=== PATIENT | female | born 1955 | race Caucasian/White ===

== ENCOUNTER → 2021-10-28 | Outpatient (CLI) | payer MEDICARE ==
[~2021-10-28] MED LIST: Calcium Citrat200 MG PO; ESCI10 PO; FLUO10 PO; HYDR-86 PO; LOSA50 PO; MODA200 PO; MULTI VITAMIN1 EACH PO; NAPR220 PO; NORCO 7.5/325 PO; ONDA4ODT SL
[2021-10-28 13:16] LABS: BASOPHILS ABSOLUTE AUTO 0.08 K/mm3 (0.00-0.23); BASOPHILS PERCENT AUTO 1 % (0-2); EOSINOPHILS ABSOLUTE AUTO 0.14 K/mm3 (0.00-0.68); EOSINOPHILS PERCENT AUTO 1 % (0-6); Hematocrit 36.2 % (33.0-51.0); Hemoglobin 12.1 g/dL (11.5-16.0); IMMATURE GRAN ABSOLUTE AUTO 0.03 K/mm3 (0.00-0.10); IMMATURE GRAN PERCENT AUTO 0 % (0-1); LYMPHOCYTES ABSOLUTE AUTO 2.12 K/mm3 (0.84-5.20); LYMPHOCYTES PERCENT AUTO 16 % (21-46); MONOCYTES ABSOLUTE AUTO 1.11 K/mm3 (0.16-1.47); MONOCYTES PERCENT AUTO 9 % (4-13); Mean Corpuscular HGB 26.9 pg (26.0-34.0); Mean Corpuscular HGB Conc 33.4 g/dL (31.5-36.5); Mean Corpuscular Volume 81 fL (80-100); Mean Platelet Volume 8.7 fL (9.1-12.4); NEUTROPHILS ABSOLUTE AUTO 9.61 K/mm3 (1.96-9.15); NEUTROPHILS PERCENT AUTO 73 % (41-73); Platelet Count 473 K/mm3 (150-400); RDW Coefficient Variation 13.8 % (11.7-14.2); RDW Standard Deviation 40.4 fL (35.1-46.3); Red Blood Cell Count 4.49 M/mm3 (3.80-5.20); White Blood Cell Count 13.09 K/mm3 (4.00-11.30)
[2021-10-28 13:24] LABS: Albumin, Blood 3.4 g/dL (3.4-5.0); Bilirubin, Total 0.9 mg/dL (0.1-1.0); Bun/Creatinine Ratio 13.2 (12.0-20.0); Calcium, Blood 8.8 mg/dL (8.5-10.1); Creatinine, Blood 0.76 mg/dL (0.40-1.00); Globulin, Blood 3.5 g/dL (2.2-4.0); Potassium, Blood 4.3 mmol/L (3.5-5.5); Total Protein, Blood 6.9 g/dL (6.4-8.2)
== END ==
LOC: LAB SHORT 13:09
PROVIDERS: Physician Assistant
DX: R10.9 Unspecified abdominal pain (principal); N39.0 Urinary tract infection, site not specified
CPT/HCPCS: 80053; 83690; 85025; 87086

== ENCOUNTER → 2021-11-30 | Outpatient (CLI) | payer MEDICARE ==
[2021-11-30 14:46] LABS: Microalb/Creat Ratio UR, Rand Unable to Calculate mg/g (0.000-30.000); Microalbumin, Random Urine <5.000 mg/L (0.000-20.000)
== END | disposition home or self-care (01) ==
LOC: LAB SHORT 10:00
PROVIDERS: Family Medicine
DX: R73.03 Prediabetes (principal)
CPT/HCPCS: 82043; 82570

== ENCOUNTER 2021-12-08 07:11 | Inpatient (IN) | payer MEDICARE ==
[~2021-12-08] VITALS: Ht 162.6 cm; Wt 108.9 kg
[2021-12-08 08:11] LABS: BASOPHILS ABSOLUTE AUTO 0.05 K/mm3 (0.00-0.23); BASOPHILS PERCENT AUTO 0 % (0-2); EOSINOPHILS PERCENT AUTO 0 % (0-6); Hematocrit 40.7 % (33.0-51.0); Hemoglobin 13.2 g/dL (11.5-16.0); IMMATURE GRAN ABSOLUTE AUTO 0.09 K/mm3 (0.00-0.10); IMMATURE GRAN PERCENT AUTO 0 % (0-1); LYMPHOCYTES ABSOLUTE AUTO 1.31 K/mm3 (0.84-5.20); LYMPHOCYTES PERCENT AUTO 6 % (21-46); MONOCYTES ABSOLUTE AUTO 0.69 K/mm3 (0.16-1.47); MONOCYTES PERCENT AUTO 3 % (4-13); Mean Corpuscular HGB 25.8 pg (26.0-34.0); Mean Corpuscular HGB Conc 32.4 g/dL (31.5-36.5); Mean Corpuscular Volume 80 fL (80-100); NEUTROPHILS ABSOLUTE AUTO 19.69 K/mm3 (1.96-9.15); NEUTROPHILS PERCENT AUTO 90 % (41-73); Platelet Count 495 K/mm3 (150-400); RDW Coefficient Variation 14.7 % (11.7-14.2); RDW Standard Deviation 42.4 fL (35.1-46.3); Red Blood Cell Count 5.11 M/mm3 (3.80-5.20); White Blood Cell Count 21.83 K/mm3 (4.00-11.30)
[2021-12-08 08:32] LABS: Albumin, Blood 3.6 g/dL (3.4-5.0); Albumin/Globulin Ratio 0.9 (0.8-1.8); Bun/Creatinine Ratio 23.4 (12.0-20.0); Calcium, Blood 9.6 mg/dL (8.5-10.1); Creatinine, Blood 0.6 mg/dL (0.40-1.00); Total Protein, Blood 7.6 g/dL (6.4-8.2)
[2021-12-08] MEDS ORDERED: THERA-D2000 UNIT PO (09:10)
[2021-12-08] MEDS ORDERED: Acetaminophen650 M1 PO ×2 (09:11)
[2021-12-08] MEDS ORDERED: ESCI20 PO (09:38)
[2021-12-08 15:54] LABS: SARS-Cov-2 (COVID-19) PCR, MMC NEGATIVE (NEGATIVE)
--- NOTE | 2021-12-08 17:36 | NUR ---
PT HR 102-120, PT REPORTS PAIN LESSENS AFTER PAIN MEDS BUT GRADUALLY "CREEPS UP" REPORTS PAIN IS MAINLY IN LLQ. PTS SON MERARY HOME BIOX, ON CONT BIOX AND MAINTAINING GREATER THAN 90%.
--- NOTE | 2021-12-08 18:05 | NUR ---
PT REPORTS NO PAIN RELIEF AFTER MEDICATING. HR 102-120. PT GRIMACING AND RUBBING STOMACH.NOTIFIED DR GARDUNO OF PATIENTS STATUS
[2021-12-09 04:51] LABS: BASOPHILS ABSOLUTE AUTO 0.05 K/mm3 (0.00-0.23); BASOPHILS PERCENT AUTO 0 % (0-2); EOSINOPHILS PERCENT AUTO 0 % (0-6); Hematocrit 36.6 % (33.0-51.0); Hemoglobin 11.6 g/dL (11.5-16.0); IMMATURE GRAN PERCENT AUTO 1 % (0-1); LYMPHOCYTES ABSOLUTE AUTO 1.65 K/mm3 (0.84-5.20); LYMPHOCYTES PERCENT AUTO 8 % (21-46); MONOCYTES ABSOLUTE AUTO 0.93 K/mm3 (0.16-1.47); MONOCYTES PERCENT AUTO 4 % (4-13); Mean Corpuscular HGB 25.8 pg (26.0-34.0); Mean Corpuscular HGB Conc 31.7 g/dL (31.5-36.5); Mean Corpuscular Volume 81 fL (80-100); Mean Platelet Volume 8.8 fL (9.1-12.4); NEUTROPHILS ABSOLUTE AUTO 19.05 K/mm3 (1.96-9.15); NEUTROPHILS PERCENT AUTO 87 % (41-73); Platelet Count 386 K/mm3 (150-400); RDW Coefficient Variation 15.2 % (11.7-14.2); White Blood Cell Count 21.78 K/mm3 (4.00-11.30)
--- NOTE | 2021-12-09 05:07 | NUR ---
ASSUMED CARE OF PT AT 1900 HRS. PT IS A&OX4, MOD ASSIST OOB AND IS ABLE TO MAKE NEEDS KNOWN. SURGICAL EVAL THIS SHIFT, ORDERED TORADOL FOR PAIN MANAGEMENT. PT RATING PAIN 8-9/10 THROUGHOUT THE NIGHT. BOWEL TONES ARE FAINT AND HYPOACTIVE. PT RESTS BETWEEN CARES, IS ABLE TO SLEEP 6+ HOURS THIS SHIFT. CALLS APPROPRIATELY. WILL CONTINUE TO MONITOR AND GIVE REPORT TO DAY SHIFT RN.
[2021-12-09 05:21] LABS: Albumin, Blood 2.7 g/dL (3.4-5.0); Anion Gap 6 mmol/L (6-16); Blood Urea Nitrogen 22 mg/dL (8-24); Bun/Creatinine Ratio 23.8 (12.0-20.0); CO2, Blood 27 mmol/L (21-32); Calcium, Blood 8.9 mg/dL (8.5-10.1); Chloride, Blood 105 mmol/L (98-108); Creatinine, Blood 0.93 mg/dL (0.40-1.00); Glomerular Filtration Rate 68 (60-); Glucose, Blood 137 mg/dL (70-99); Magnesium, Blood 2.2 mg/dL (1.6-2.4); Potassium, Blood 4.4 mmol/L (3.5-5.5); Sodium, Blood 138 mmol/L (136-145)
--- NOTE | 2021-12-09 15:45 | NUR ---
PATIENTS BP IS LOW AT 96/58. RECHECK SHOWS 96/56. PATIENT SLIGHTLY "CLAMMY", DENIES DIZZINESS/LIGHTHEADEDNESS. MD NOTIFIED.
--- NOTE | 2021-12-09 17:28 | NUR ---
DR GARDUNO ORDERED 1OOOML BOLUS. DR CASH AT BEDSIDE, UPDATED ON PATIENTS CONDITION. GAVE ORDERS TO PLACE AND LEAVE DORANTES IF PATIENT BLADDER SCAN SHOWS GREATER THAN 300 AND PATIENT IS UNABLE TO VOID. STATED HE WOULD ENTER ORDERS.
--- NOTE | 2021-12-09 18:58 | NUR ---
SHIFT [facility] PATIENT HAD LOW BP LATE IN THE SHIFT THIS SHIFT, FLUID BOLUS GIVEN AND IMPROVED BP, SEE CHART. PATIENT IS NPO W/ SIPS & CHIPS, IV ABX, FLUIDS RUNNING. STRAIGHT CATH THIS AM D/T URINARY RETENTION. PATIENT REPORTS MINIMAL ABDOMINAL PAIN WHILE AT REST, MEDICATED PER EMAR. CALLS APPROPRIATELY, WILL REPORT TO ONCOMING RN.
[2021-12-10 04:49] LABS: BASOPHILS ABSOLUTE AUTO 0.03 K/mm3 (0.00-0.23); BASOPHILS PERCENT AUTO 0 % (0-2); EOSINOPHILS ABSOLUTE AUTO 0.04 K/mm3 (0.00-0.68); EOSINOPHILS PERCENT AUTO 0 % (0-6); Hematocrit 34.7 % (33.0-51.0); Hemoglobin 10.7 g/dL (11.5-16.0); IMMATURE GRAN ABSOLUTE AUTO 0.05 K/mm3 (0.00-0.10); IMMATURE GRAN PERCENT AUTO 0 % (0-1); LYMPHOCYTES ABSOLUTE AUTO 1.03 K/mm3 (0.84-5.20); LYMPHOCYTES PERCENT AUTO 7 % (21-46); MONOCYTES ABSOLUTE AUTO 0.44 K/mm3 (0.16-1.47); MONOCYTES PERCENT AUTO 3 % (4-13); Mean Corpuscular HGB 25.7 pg (26.0-34.0); Mean Corpuscular HGB Conc 30.8 g/dL (31.5-36.5); Mean Corpuscular Volume 83 fL (80-100); Mean Platelet Volume 9.1 fL (9.1-12.4); NEUTROPHILS ABSOLUTE AUTO 12.83 K/mm3 (1.96-9.15); NEUTROPHILS PERCENT AUTO 89 % (41-73); Platelet Count 357 K/mm3 (150-400); RDW Coefficient Variation 15.4 % (11.7-14.2); RDW Standard Deviation 46.5 fL (35.1-46.3); Red Blood Cell Count 4.17 M/mm3 (3.80-5.20); White Blood Cell Count 14.42 K/mm3 (4.00-11.30)
--- NOTE | 2021-12-10 05:05 | NUR ---
ASSUMED CARE OF PT AT 1900. PT IS A&OX4, IS ABLE TO AMBULATE TO BR WITH MINIMAL ASSISTANCE AND IS ABLE TO MAKE NEEDS KNOWN. PT REPORTS SOME PASSING OF FLATUS THIS SHIFT. DORANTES CATHETER STARTED FOR RETENTION. PT IS NPO D/T SOME INCREASING ABD DISTENSION. PT REPORTS PAIN IMPROVING. PT RESTS BETWEEN CARES, IS ABLE TO SLEEP 6+ HOURS THIS SHIFT. WILL CONTINUE TO MONITOR THIS PT AND GIVE HANDOFF REPORT TO DAYSHIFT RN.
[2021-12-10 05:09] LABS: Albumin, Blood 2.2 g/dL (3.4-5.0); Anion Gap 5 mmol/L (6-16); Blood Urea Nitrogen 31 mg/dL (8-24); Bun/Creatinine Ratio 28.4 (12.0-20.0); CO2, Blood 27 mmol/L (21-32); Calcium, Blood 8.6 mg/dL (8.5-10.1); Chloride, Blood 108 mmol/L (98-108); Creatinine, Blood 1.09 mg/dL (0.40-1.00); Glomerular Filtration Rate 56 (60-); Glucose, Blood 115 mg/dL (70-99); Magnesium, Blood 2.1 mg/dL (1.6-2.4); Phosphorus, Blood 3.5 mg/dL (2.5-4.9); Potassium, Blood 4.1 mmol/L (3.5-5.5); Sodium, Blood 140 mmol/L (136-145)
--- NOTE | 2021-12-10 18:01 | NUR ---
SHIFT SUMMARY NO ACUTE EVENTS THIS SHIFT. PATIENT ADVANCED TO CLEAR LIQUIDS AND TOLERATING WELL, DENIES N/V. REPORTS MODERATE ABDOMINAL PAIN, BUT LESS FREQUENTLY, MANAGED PER EMAR. PATIENT REPORTED FLATUS THIS AM, NONE SINCE, NO BM. ENCOURAGED MOBILITY, AMBULATION, UP TO CHAIR, AND DEEP BREATHING TODAY. PATIENT AGREED TO UP TO CHAIR X1 THIS SHIFT. O2 SATS MAINTAINING >92% ON RA WHILE AWAKE THROUGHOUT SHIFT. DORANTES REMAINS IN PLACE. IV FLUIDS & ABX CONTINUE. CALLS APPROPRIATELY, WILL REPORT TO ONCOMING RN.
[2021-12-11 05:21] LABS: BASOPHILS ABSOLUTE AUTO 0.05 K/mm3 (0.00-0.23); BASOPHILS PERCENT AUTO 0 % (0-2); EOSINOPHILS PERCENT AUTO 1 % (0-6); Hematocrit 32.9 % (33.0-51.0); Hemoglobin 10.1 g/dL (11.5-16.0); IMMATURE GRAN ABSOLUTE AUTO 0.07 K/mm3 (0.00-0.10); IMMATURE GRAN PERCENT AUTO 0 % (0-1); LYMPHOCYTES ABSOLUTE AUTO 1.34 K/mm3 (0.84-5.20); LYMPHOCYTES PERCENT AUTO 9 % (21-46); MONOCYTES ABSOLUTE AUTO 0.53 K/mm3 (0.16-1.47); MONOCYTES PERCENT AUTO 3 % (4-13); Mean Corpuscular HGB 25.5 pg (26.0-34.0); Mean Corpuscular HGB Conc 30.7 g/dL (31.5-36.5); Mean Corpuscular Volume 83 fL (80-100); Mean Platelet Volume 9.1 fL (9.1-12.4); NEUTROPHILS ABSOLUTE AUTO 13.44 K/mm3 (1.96-9.15); NEUTROPHILS PERCENT AUTO 86 % (41-73); Platelet Count 357 K/mm3 (150-400); RDW Coefficient Variation 15.2 % (11.7-14.2); RDW Standard Deviation 46.9 fL (35.1-46.3); Red Blood Cell Count 3.96 M/mm3 (3.80-5.20); White Blood Cell Count 15.63 K/mm3 (4.00-11.30)
--- NOTE | 2021-12-11 05:37 | NUR ---
ASSUMED CARE OF PT AT 1900. NO ACUTE CHANGES THIS SHIFT. PT IS A&OX4, MOD ASSIST OOB, HAS FOLY AND IS ABLE TO MAKE NEEDS KNOWN. PT REPORTS NORE PAIN THIS SHIFT, MEDICATED WITH PRN FENTANYL AND ALISSA. TOLERATING CLEAR LIQUIDS. PT REPORTS PASSING OF FLATUS, BOWEL TONES ARE AUDIABLE AND ACTIVE. PT SLEEPS 6+ HOURS THIS SHIFT. NO SOB REPORTED, SAT >90& ON RA. WILL CONTINUE TO MONITOR AND GIVE HANDOFF REPORT TO DAY SHIFT RN.
[2021-12-11 05:57] LABS: Anion Gap 3 mmol/L (6-16); Blood Urea Nitrogen 31 mg/dL (8-24); CO2, Blood 26 mmol/L (21-32); Calcium, Blood 9.3 mg/dL (8.5-10.1); Chloride, Blood 109 mmol/L (98-108); Creatinine, Blood 0.86 mg/dL (0.40-1.00); Glomerular Filtration Rate 75 (60-); Glucose, Blood 119 mg/dL (70-99); Magnesium, Blood 2.6 mg/dL (1.6-2.4); Phosphorus, Blood 2.6 mg/dL (2.5-4.9); Potassium, Blood 3.8 mmol/L (3.5-5.5); Sodium, Blood 138 mmol/L (136-145)
--- NOTE | 2021-12-11 19:16 | NUR ---
SHIFT SUMMARY PT A&OX4, VSS/RA, AMB INDEPENDENTLY IN HALLWAYS/UP TO CHAIR, CAROLYNE CLD, PAIN MANAGED WITH TYLENOL AND TORADOL, VOIDING WELL, BMS++. REPORT PROVIDED TO NARGIS PAGE.
--- NOTE | 2021-12-12 04:13 | NUR ---
SHIFT SUMMARY NO ACUTE CHANGES THIS SHIFT. IVF + ABX PER ORDERS. TYLENOL/TORADOL/ROXICODONE FOR PAIN MANAGEMENT. INDEP IN ROOM. PT CONT TO REPORT FLATUS AND CAROLYNE CLEAR LIQ DIET. USES CALL LIGHT APPROPRIATELY.
[2021-12-12 04:43] LABS: BASOPHILS ABSOLUTE AUTO 0.03 K/mm3 (0.00-0.23); BASOPHILS PERCENT AUTO 0 % (0-2); EOSINOPHILS ABSOLUTE AUTO 0.22 K/mm3 (0.00-0.68); EOSINOPHILS PERCENT AUTO 2 % (0-6); Hematocrit 31.1 % (33.0-51.0); Hemoglobin 9.8 g/dL (11.5-16.0); IMMATURE GRAN ABSOLUTE AUTO 0.06 K/mm3 (0.00-0.10); IMMATURE GRAN PERCENT AUTO 0 % (0-1); LYMPHOCYTES ABSOLUTE AUTO 1.54 K/mm3 (0.84-5.20); LYMPHOCYTES PERCENT AUTO 11 % (21-46); MONOCYTES ABSOLUTE AUTO 0.56 K/mm3 (0.16-1.47); MONOCYTES PERCENT AUTO 4 % (4-13); Mean Corpuscular HGB 25.5 pg (26.0-34.0); Mean Corpuscular HGB Conc 31.5 g/dL (31.5-36.5); Mean Corpuscular Volume 81 fL (80-100); Mean Platelet Volume 9.2 fL (9.1-12.4); NEUTROPHILS ABSOLUTE AUTO 11.16 K/mm3 (1.96-9.15); NEUTROPHILS PERCENT AUTO 82 % (41-73); Platelet Count 354 K/mm3 (150-400); RDW Coefficient Variation 15.1 % (11.7-14.2); RDW Standard Deviation 44.5 fL (35.1-46.3); Red Blood Cell Count 3.84 M/mm3 (3.80-5.20); White Blood Cell Count 13.57 K/mm3 (4.00-11.30)
[2021-12-12 05:10] LABS: Albumin, Blood 1.8 g/dL (3.4-5.0); Anion Gap 8 mmol/L (6-16); Blood Urea Nitrogen 23 mg/dL (8-24); Bun/Creatinine Ratio 30.4 (12.0-20.0); CO2, Blood 24 mmol/L (21-32); Calcium, Blood 8.5 mg/dL (8.5-10.1); Chloride, Blood 109 mmol/L (98-108); Creatinine, Blood 0.76 mg/dL (0.40-1.00); Glomerular Filtration Rate 87 (60-); Glucose, Blood 117 mg/dL (70-99); Magnesium, Blood 2.4 mg/dL (1.6-2.4); Phosphorus, Blood 3.5 mg/dL (2.5-4.9); Potassium, Blood 3.5 mmol/L (3.5-5.5); Sodium, Blood 141 mmol/L (136-145)
--- NOTE | 2021-12-12 16:18 | NUR ---
SHIFT SUMMARY PT A&OX4, VSS/RA. ADV TO REG LOW FAT DIET, W/N HALF-HOUR PT HAD LARGE LIQUID JELLY BM WITH ABD CRAMPING. MEDICATED WITH 25 FENT X2, WHICH HELPED PT RELAX AND SLEEP. WILL REPORT TO ONCOMING JANAE PAGE.
--- NOTE | 2021-12-13 04:09 | NUR ---
SHIFT SUMMARY PT HAS SLOWLY STARTED TO FEEL BETTER T/O NIGHT. ZOFRAN GIVEN AT START OF SHIFT FOR NAUSEA. NO EMESIS. TYLENOL/TORADOL/FENTANYL FOR ABD PAIN MANAGEMENT. PT PASSING FLATUS AND HAD A MORE SOLID BM VS LIQUID BM. IVF + ABX PER ORDERS. INDEP IN ROOM. USES CALL LIGHT APPROPRIATELY.
[2021-12-13 13:01] LABS: Influenza A, PCR NEGATIVE (NEGATIVE); Influenza B, PCR NEGATIVE (NEGATIVE); Resp Syncytial Virus, PCR NEGATIVE (NEGATIVE); SARS-Cov-2 (COVID-19) PCR, MMC NEGATIVE (NEGATIVE)
--- NOTE | 2021-12-13 13:33 | NUR ---
PT TO PROCEDURE AT 1315
--- NOTE | 2021-12-13 14:39 | NUR ---
12/13/21 1439 Rosemary Condon PT. IS ON SCHEDULED ABX
--- NOTE | 2021-12-13 17:46 | NUR ---
SHIFT SUMMARY PT POD #1 FOR WASH OUT AND DRAIN PLACEMENT. PT WAS TO HAVE A HEMICOLECTOMY BUT HEMICOLECTOMY WAS NOT POSSIBLE DUE TO INFLAMMATION. 2 EUSEBIA DRAINS PLACED, DRAINING SS FLUID. PT'S PAIN TREATED PER EMR. CLEAR LIQUID DIET IN THE AM. VSS.
[2021-12-14 05:03] LABS: BASOPHILS ABSOLUTE AUTO 0.03 K/mm3 (0.00-0.23); BASOPHILS PERCENT AUTO 0 % (0-2); EOSINOPHILS ABSOLUTE AUTO 0.01 K/mm3 (0.00-0.68); EOSINOPHILS PERCENT AUTO 0 % (0-6); Hematocrit 32.9 % (33.0-51.0); Hemoglobin 10.3 g/dL (11.5-16.0); IMMATURE GRAN PERCENT AUTO 1 % (0-1); LYMPHOCYTES ABSOLUTE AUTO 1.37 K/mm3 (0.84-5.20); LYMPHOCYTES PERCENT AUTO 9 % (21-46); MONOCYTES ABSOLUTE AUTO 0.88 K/mm3 (0.16-1.47); MONOCYTES PERCENT AUTO 6 % (4-13); Mean Corpuscular HGB 25.1 pg (26.0-34.0); Mean Corpuscular HGB Conc 31.3 g/dL (31.5-36.5); Mean Corpuscular Volume 80 fL (80-100); Mean Platelet Volume 9.3 fL (9.1-12.4); NEUTROPHILS ABSOLUTE AUTO 12.23 K/mm3 (1.96-9.15); NEUTROPHILS PERCENT AUTO 84 % (41-73); Platelet Count 435 K/mm3 (150-400); RDW Coefficient Variation 15.2 % (11.7-14.2); RDW Standard Deviation 44.6 fL (35.1-46.3); Red Blood Cell Count 4.11 M/mm3 (3.80-5.20); White Blood Cell Count 14.62 K/mm3 (4.00-11.30)
[2021-12-14 05:19] LABS: Albumin, Blood 1.7 g/dL (3.4-5.0); Anion Gap 4 mmol/L (6-16); Blood Urea Nitrogen 18 mg/dL (8-24); Bun/Creatinine Ratio 25.1 (12.0-20.0); CO2, Blood 27 mmol/L (21-32); Calcium, Blood 8.6 mg/dL (8.5-10.1); Chloride, Blood 110 mmol/L (98-108); Creatinine, Blood 0.72 mg/dL (0.40-1.00); Glomerular Filtration Rate 93 (60-); Glucose, Blood 124 mg/dL (70-99); Magnesium, Blood 2.3 mg/dL (1.6-2.4); Phosphorus, Blood 3.3 mg/dL (2.5-4.9); Potassium, Blood 4.1 mmol/L (3.5-5.5); Sodium, Blood 141 mmol/L (136-145)
--- NOTE | 2021-12-14 05:37 | NUR ---
ASSUMED CARE OF PT AT 1900. PT IS A&OX4, HAS DORANTES IN PLACE AND IS ABLE TO MAKE NEEDS KNOWN. POST OP DAY 1 FOR I&D AND BILAT DRAIN PLACEMENT, DRESSINGS CDI AND CSM INTACT. PAIN IS CONTROLLED WITH PRN FENTANYL, PT ALSO REQUESTED HEATING PAD AND STATED THAT IT HELPED WITH PAIN CONTROL. PT ON CLEAR LIQID DIET. NO NAUSEA REPORTED, PT REPORTS NO PASSING OF FLATUS. PT RESTS BETWEEN CARES AND IS ABLE TO SLEEP 6+ HOURS. WILL CONTINUE TO MONITOR AND GIVE HANDOFF REPORT TO ONCOMING RN.
--- NOTE | 2021-12-14 12:08 | NUR ---
EUSEBIA OUTPUT RLQ DRAIN OUTPUT IS SS, LLQ DRAIN OUTPUT IS SEROUS/LIGHT YELLOW
[2021-12-15 06:04] LABS: BASOPHILS ABSOLUTE AUTO 0.06 K/mm3 (0.00-0.23); BASOPHILS PERCENT AUTO 0 % (0-2); EOSINOPHILS ABSOLUTE AUTO 0.52 K/mm3 (0.00-0.68); EOSINOPHILS PERCENT AUTO 3 % (0-6); Hematocrit 31.1 % (33.0-51.0); IMMATURE GRAN ABSOLUTE AUTO 0.19 K/mm3 (0.00-0.10); IMMATURE GRAN PERCENT AUTO 1 % (0-1); LYMPHOCYTES ABSOLUTE AUTO 2.01 K/mm3 (0.84-5.20); LYMPHOCYTES PERCENT AUTO 12 % (21-46); MONOCYTES ABSOLUTE AUTO 1.03 K/mm3 (0.16-1.47); MONOCYTES PERCENT AUTO 6 % (4-13); Mean Corpuscular HGB 25.9 pg (26.0-34.0); Mean Corpuscular HGB Conc 32.2 g/dL (31.5-36.5); Mean Corpuscular Volume 81 fL (80-100); NEUTROPHILS ABSOLUTE AUTO 12.77 K/mm3 (1.96-9.15); NEUTROPHILS PERCENT AUTO 77 % (41-73); Platelet Count 444 K/mm3 (150-400); RDW Coefficient Variation 15.8 % (11.7-14.2); RDW Standard Deviation 46.7 fL (35.1-46.3); Red Blood Cell Count 3.86 M/mm3 (3.80-5.20); White Blood Cell Count 16.58 K/mm3 (4.00-11.30)
[2021-12-15 06:28] LABS: Albumin, Blood 1.6 g/dL (3.4-5.0); Anion Gap 7 mmol/L (6-16); Blood Urea Nitrogen 18 mg/dL (8-24); Bun/Creatinine Ratio 30.1 (12.0-20.0); CO2, Blood 25 mmol/L (21-32); Calcium, Blood 8.3 mg/dL (8.5-10.1); Chloride, Blood 108 mmol/L (98-108); Glomerular Filtration Rate 100 (60-); Glucose, Blood 155 mg/dL (70-99); Magnesium, Blood 2.1 mg/dL (1.6-2.4); Phosphorus, Blood 2.8 mg/dL (2.5-4.9); Potassium, Blood 3.5 mmol/L (3.5-5.5); Sodium, Blood 140 mmol/L (136-145)
--- NOTE | 2021-12-15 07:01 | NUR ---
SUMMARY NO NEW ISSUES NOTED .PT PAIN MANAGED WELL PER EMAR. PT SLEPT VERY WELL DURING SHIFT.
--- NOTE | 2021-12-15 18:58 | NUR ---
SHIFT SUMMARY POD2 I&D, EUSEBIA DRAINS HAD MINIMAL OUTPUT TODAY, PT LESS PAINFUL TODAY BUT MEDICATED PER EMAR, UP TO CHAIR FOR MOST OF THE SHIFT, ABLE TO AMBULATE WITH FWW TO BATHROOM. BM TODAY, JOSE E KNUTSON'D PER ORDER. NO ACUTE EVENTS TODAY, WILL CTM AND REPORT TO ONCOMING NOC RN.
--- NOTE | 2021-12-16 04:51 | NUR ---
SHIFT SUMMARY POD 2 I&D, PT HAS RESTED MOST OF THE SHIFT. SHE HAS HAD SOME INTERMITTENT ABD PAIN, PAIN RELEIVED WITH MEDS PER EMAR. EUSEBIA DRAIN SITES X2 WNL. SMALL AMOUNT OF OUTPUT IN EACH. PT DENIES N/V. PPN INFUSING. NO ACUTE CHANGES OVERNIGHT, BED IN LOWEST POSITION, CALL LIGHT WITHIN REACH.
[2021-12-16 11:12] LABS: BASOPHILS ABSOLUTE AUTO 0.05 K/mm3 (0.00-0.23); BASOPHILS PERCENT AUTO 0 % (0-2); EOSINOPHILS ABSOLUTE AUTO 0.42 K/mm3 (0.00-0.68); EOSINOPHILS PERCENT AUTO 3 % (0-6); Hemoglobin 10.2 g/dL (11.5-16.0); IMMATURE GRAN ABSOLUTE AUTO 0.23 K/mm3 (0.00-0.10); IMMATURE GRAN PERCENT AUTO 1 % (0-1); LYMPHOCYTES ABSOLUTE AUTO 1.79 K/mm3 (0.84-5.20); LYMPHOCYTES PERCENT AUTO 11 % (21-46); MONOCYTES ABSOLUTE AUTO 0.96 K/mm3 (0.16-1.47); MONOCYTES PERCENT AUTO 6 % (4-13); Mean Corpuscular HGB 25.6 pg (26.0-34.0); Mean Corpuscular HGB Conc 31.9 g/dL (31.5-36.5); Mean Corpuscular Volume 80 fL (80-100); Mean Platelet Volume 9.2 fL (9.1-12.4); NEUTROPHILS ABSOLUTE AUTO 12.75 K/mm3 (1.96-9.15); NEUTROPHILS PERCENT AUTO 79 % (41-73); Platelet Count 503 K/mm3 (150-400); Red Blood Cell Count 3.99 M/mm3 (3.80-5.20)
[2021-12-16 11:30] LABS: Bun/Creatinine Ratio 6.9 (12.0-20.0); Calcium, Blood 8.6 mg/dL (8.5-10.1); Creatinine, Blood 0.58 mg/dL (0.40-1.00); Potassium, Blood 3.6 mmol/L (3.5-5.5)
--- NOTE | 2021-12-16 14:55 | NUR ---
REPORT GIVEN TO CAMILO URRUTIA
--- NOTE | 2021-12-16 15:09 | NUR ---
Assumed Care: Approximately 1500. Patient resting in bed comfortably upon arrival to room. A/O. Verbalized wanting to take nap. Pain adequately managed per patient state. No other needs at this time.
--- NOTE | 2021-12-16 18:47 | NUR ---
Shift Summary A/O, SBA c FWW to bathroom. Voiding well. PPN infusing per EMAR. Medicated for mild to moderate diffused abdominal pain with good effect. Decent appetite, tolerating PO well. Able to make needs known.
--- NOTE | 2021-12-17 06:16 | NUR ---
SHIFT SUMMARY PT HAS RESTED OFF AND ON T/O THE SHIFT, SHE HAS HAD MORE DISCOMFORT THIS SHIFT THAN LAST NIGHT. PT HAVING A LOT OF GAS PAINS AND NAUSEA, AMBULATION TO AND FROM THE BATHROOM HAS SEEMED TO EASE THE PAIN. MEDICATED FOR PAIN PRN PER EMAR. DRAINS CONTINUE WITH MODERATE AMOUNTS OF OUTPUT. RIGHT DRAIN MORE SO THAN LEFT. PT HAS HAD NO VOMITTING THIS SHIFT. PPN INFUSING, LAST BM TWO DAYS AGO. VITALS STABLE. BED IN LOWEST POSITION, CALL LIGHT WITHIN REACH.
[2021-12-17 10:07] LABS: BASOPHILS ABSOLUTE AUTO 0.05 K/mm3 (0.00-0.23); BASOPHILS PERCENT AUTO 0 % (0-2); EOSINOPHILS PERCENT AUTO 1 % (0-6); Hematocrit 30.1 % (33.0-51.0); Hemoglobin 9.9 g/dL (11.5-16.0); IMMATURE GRAN ABSOLUTE AUTO 0.17 K/mm3 (0.00-0.10); IMMATURE GRAN PERCENT AUTO 1 % (0-1); LYMPHOCYTES ABSOLUTE AUTO 1.41 K/mm3 (0.84-5.20); LYMPHOCYTES PERCENT AUTO 8 % (21-46); MONOCYTES ABSOLUTE AUTO 1.08 K/mm3 (0.16-1.47); MONOCYTES PERCENT AUTO 6 % (4-13); Mean Corpuscular HGB 25.8 pg (26.0-34.0); Mean Corpuscular HGB Conc 32.9 g/dL (31.5-36.5); Mean Corpuscular Volume 79 fL (80-100); Mean Platelet Volume 8.7 fL (9.1-12.4); NEUTROPHILS ABSOLUTE AUTO 15.36 K/mm3 (1.96-9.15); NEUTROPHILS PERCENT AUTO 84 % (41-73); Platelet Count 493 K/mm3 (150-400); RDW Standard Deviation 43.4 fL (35.1-46.3); Red Blood Cell Count 3.83 M/mm3 (3.80-5.20); White Blood Cell Count 18.27 K/mm3 (4.00-11.30)
[2021-12-17 10:24] LABS: Albumin, Blood 1.5 g/dL (3.4-5.0); Anion Gap 6 mmol/L (6-16); Blood Urea Nitrogen 11 mg/dL (8-24); CO2, Blood 26 mmol/L (21-32); Calcium, Blood 8.3 mg/dL (8.5-10.1); Chloride, Blood 105 mmol/L (98-108); Creatinine, Blood 0.52 mg/dL (0.40-1.00); Glomerular Filtration Rate 103 (60-); Glucose, Blood 162 mg/dL (70-99); Magnesium, Blood 1.9 mg/dL (1.6-2.4); Phosphorus, Blood 2.7 mg/dL (2.5-4.9); Sodium, Blood 137 mmol/L (136-145)
--- NOTE | 2021-12-17 11:24 | NUR ---
DR SANDERSON ROUNDED. EUSEBIA DRAIN DRESSINGS CHANGED. CLEANSED AROUND EUSEBIA DRAINS WITH WOUND CLEANSER. DRAIN GAUZE AND TEGADERM PLACED OVER EUSEBIA SITES. DR. SANDERSON NOTIFIED OF BROWN DRAINAGE FROM EUSEBIA DRAINS AND INCREASED NAUSEA. CHANGE DIET BACK TO NPO WITH SIPS AND CHIPS FOR COMFORT AT THIS TIME.
--- NOTE | 2021-12-17 19:43 | NUR ---
SHIFT SUMMARY PT IS INDEPENDENT IN THE ROOM. PAIN MANAGED WITH PO PAIN MEDICATION. OUTPUT FROM EUSEBIA DRAINS BROWN T/O THE DAY, DR. SANTIAGO AWARE. PT NOW GETTING SIPS AND CHIPS. PT HAD INCREASED NAUSEA BEFORE TRANSITIONING TO NPO WITH SIPS AND CHIPS ONLY. WILL MONITOR UNTIL REPORT TO JANAE RN.
--- NOTE | 2021-12-18 04:44 | NUR ---
SHIFT SUMMARY A/O X4- IND IN THE ROOM. POD5 LAP WASHOUT W/ DRAIN PLACEMENT. EUSEBIA DRAINS TO LLQ AND RLQ DRAINING BROWNISH DRAINAGE. LAP SITES X2 C/D/I. NPO STATUS AT THIS TIME W/ NUTRITION REPLACEMENT. VOIDING WELL. PAIN MANAGED W/ PO PAIN MEDICATIONS. NO ACUTE CHANGES THIS SHIFT. WILL CONTINUE TO MONITOR AND REPORT TO ONCOMING RN.
[2021-12-18 06:10] LABS: BASOPHILS ABSOLUTE AUTO 0.05 K/mm3 (0.00-0.23); BASOPHILS PERCENT AUTO 0 % (0-2); EOSINOPHILS ABSOLUTE AUTO 0.26 K/mm3 (0.00-0.68); EOSINOPHILS PERCENT AUTO 1 % (0-6); Hematocrit 29.4 % (33.0-51.0); Hemoglobin 9.4 g/dL (11.5-16.0); IMMATURE GRAN ABSOLUTE AUTO 0.17 K/mm3 (0.00-0.10); IMMATURE GRAN PERCENT AUTO 1 % (0-1); LYMPHOCYTES PERCENT AUTO 9 % (21-46); MONOCYTES ABSOLUTE AUTO 1.33 K/mm3 (0.16-1.47); MONOCYTES PERCENT AUTO 7 % (4-13); Mean Corpuscular HGB 25.5 pg (26.0-34.0); Mean Corpuscular Volume 80 fL (80-100); Mean Platelet Volume 8.8 fL (9.1-12.4); NEUTROPHILS ABSOLUTE AUTO 16.49 K/mm3 (1.96-9.15); NEUTROPHILS PERCENT AUTO 82 % (41-73); Platelet Count 535 K/mm3 (150-400); RDW Coefficient Variation 15.1 % (11.7-14.2); Red Blood Cell Count 3.69 M/mm3 (3.80-5.20)
[2021-12-18 06:30] LABS: Calcium, Blood 8.5 mg/dL (8.5-10.1); Creatinine, Blood 0.5 mg/dL (0.40-1.00); Potassium, Blood 4.1 mmol/L (3.5-5.5)
--- NOTE | 2021-12-18 19:53 | NUR ---
SHIFT SUMMARY PT ADVANCED DIET TO CLEARS TODAY WHICH SHE TOLERATED WELL, REQUESTED PAIN MEDICATION ONCE THIS SHIFT (SEE EMAR). NO ACUTE EVENTS THIS SHIFT. CALL LIGHT IN REACH, REPORT GIVEN TO JANAE PAGE.
--- NOTE | 2021-12-19 04:06 | NUR ---
SHIFT SUMMARY PT REPORTS SHE "THREW OUT HER BACK" EARLIER THIS SHIFT. SHE NOW REQUIRES 2 PEOPLE SBA TO STAND AND PIVOT TO BSC. 1 ALISSA/TYLENOL FOR PAIN MANAGEMENT. CAROLYNE SMALL AMOUNTS OF ICE CHIPS/SIPS WITH NO NAUSEA. LAP SITES TO ABD REMAIN CDI. BILAT EUSEBIA DRAINS WITH SMALL AMOUNTS OF LIGHT BROWN/CLOUDY DRAINAGE. PPN + ABX INFUSING PER ORDERS. USES CALL LIGHT APPROPRIATELY.
--- NOTE | 2021-12-19 17:57 | NUR ---
SHIFT SUMMARY PT STRUGGLED w/ BACK PAIN TODAY. REPORTS FLEXERIL HELPED BUT HAD TO INCREASE FROM 5MG OXY TO 10MG. WAS NOT ABLE TO AMBULATE TO BATHROOM BUT USED BSC w/ 1 ASSIST. POOR APPETITE w/ CLEAR LQ's.
--- NOTE | 2021-12-20 04:17 | NUR ---
PT NOT TOLERATING ORAL CONTRAST WELL. NAUSEATED AND EMESIS X1 + DIARRHEA. PT ALSO COMPLAINS OF INCREASED ABDOMINAL PAIN/FULLNESS. MEDICATED PER EMAR. CONT TO MONITOR.
--- NOTE | 2021-12-20 04:34 | NUR ---
PT REPORTS FEELING MUCH BETTER AFTER HAVING BM.
--- NOTE | 2021-12-20 04:39 | NUR ---
SHIFT SUMMARY PT RESTED WELL MOST OF SHIFT UNTIL INTAKE OF ORAL CONTRAST. SEE PREVIOUS NOTES. OTHERWISE, 1 ROXICODONE FOR PAIN. 1 SBA TO BSC. PPN + ABX INFUSING PER ORDERS. CONT TO ENCOURAGE INTAKE OF ORAL CONTRAST FOR CT SCAN THIS MORNING. CALL LIGHT WITHIN REACH.
[2021-12-20 07:19] LABS: Hematocrit 32.3 % (33.0-51.0); Hemoglobin 10.1 g/dL (11.5-16.0); Mean Corpuscular HGB 25.3 pg (26.0-34.0); Mean Corpuscular HGB Conc 31.3 g/dL (31.5-36.5); Mean Corpuscular Volume 81 fL (80-100); Mean Platelet Volume 8.8 fL (9.1-12.4); Platelet Count 805 K/mm3 (150-400); RDW Coefficient Variation 15.4 % (11.7-14.2); RDW Standard Deviation 45.5 fL (35.1-46.3); Red Blood Cell Count 3.99 M/mm3 (3.80-5.20); White Blood Cell Count 19.09 K/mm3 (4.00-11.30)
[2021-12-20 07:39] LABS: Anion Gap 7 mmol/L (6-16); Blood Urea Nitrogen 10 mg/dL (8-24); CO2, Blood 27 mmol/L (21-32); Calcium, Blood 8.5 mg/dL (8.5-10.1); Chloride, Blood 100 mmol/L (98-108); Glomerular Filtration Rate 104 (60-); Glucose, Blood 134 mg/dL (70-99); Magnesium, Blood 1.9 mg/dL (1.6-2.4); Phosphorus, Blood 2.5 mg/dL (2.5-4.9); Sodium, Blood 134 mmol/L (136-145); Triglycerides 100 mg/dL (30-160)
[2021-12-20 07:55] LABS: BAND PERCENT MAN 2 % (0-8); BASOPHILS PERCENT MAN 0 % (0-2); EOSINOPHILS ABSOLUTE MAN 0.38 K/mm3 (0.00-0.68); EOSINOPHILS PERCENT MAN 2 % (0-6); LYMPHOCYTES ABSOLUTE MAN 0.95 K/mm3 (0.84-5.20); LYMPHOCYTES PERCENT MAN 5 % (21-46); MONOCYTES ABSOLUTE MAN 0.19 K/mm3 (0.16-1.47); MONOCYTES PERCENT MAN 1 % (4-13); NEUTROPHILS ABSOLUTE MAN 17.56 K/mm3 (1.96-9.15); SEG NEUTROPHILS PERCENT MAN 90 % (41-73); TOTAL CELLS COUNTED 100
--- NOTE | 2021-12-20 14:01 | NUR ---
Spiritual Care Attempted. Stop sign is posted so that roon can be disinfected. Confirmed with charge nurse, no visitors for now.
--- NOTE | 2021-12-20 18:49 | NUR ---
SHIFT SUMMARY BEGINNING OF SHIFT, PT WAS UNCOMFORTABLE & NAUSEATED. CT SCAN COMPLETED. PICC LINE PLACED. NEW ORDERS FOR PHENERGAN MIDDDAY WHICH HELPED PT WAS ABLE TO REST THEN FELT GOOD ENOUGH TO GET UP TO A CHAIR FOR A SHORT TIME. EUSEBIA #1 HAD SOME PURULANT OUTPUT, BUT EUSEBIA #2 HAD NONE.
[2021-12-21 05:34] LABS: BASOPHILS PERCENT AUTO 0 % (0-2); EOSINOPHILS ABSOLUTE AUTO 0.12 K/mm3 (0.00-0.68); EOSINOPHILS PERCENT AUTO 0 % (0-6); Hematocrit 29.3 % (33.0-51.0); Hemoglobin 9.5 g/dL (11.5-16.0); IMMATURE GRAN ABSOLUTE AUTO 0.23 K/mm3 (0.00-0.10); IMMATURE GRAN PERCENT AUTO 1 % (0-1); LYMPHOCYTES ABSOLUTE AUTO 1.96 K/mm3 (0.84-5.20); LYMPHOCYTES PERCENT AUTO 7 % (21-46); MONOCYTES PERCENT AUTO 5 % (4-13); Mean Corpuscular HGB 25.7 pg (26.0-34.0); Mean Corpuscular HGB Conc 32.4 g/dL (31.5-36.5); Mean Corpuscular Volume 79 fL (80-100); Mean Platelet Volume 8.7 fL (9.1-12.4); NEUTROPHILS ABSOLUTE AUTO 23.81 K/mm3 (1.96-9.15); NEUTROPHILS PERCENT AUTO 86 % (41-73); Platelet Count 814 K/mm3 (150-400); RDW Coefficient Variation 15.4 % (11.7-14.2); RDW Standard Deviation 44.3 fL (35.1-46.3); White Blood Cell Count 27.72 K/mm3 (4.00-11.30)
--- NOTE | 2021-12-21 05:54 | NUR ---
SHIFT SUMMARY PT A&O4, PLEASANT AND COOPERATIVE. TOLERATING CLEAR LIQUIDS. PT DENIES NAUSEA. PAIN MANAGED PER EMAR. 1 ASSIST TO BSC. LAP SITES C/D/I. SMALL AMOUNT OF PURULENT OUTPUT IN EUSEBIA #1; SEROSANGUINOUS IN EUSEBIA #2.
[2021-12-21 06:00] LABS: C-REACTIVE PROTEIN, EXT RANGE 10.9 mg/dL (0.000-0.300); Magnesium, Blood 2.4 mg/dL (1.6-2.4); Prealbumin, Blood 8.4 mg/dL (20.0-40.0)
[2021-12-21 06:01] LABS: Bun/Creatinine Ratio 19.2 (12.0-20.0); Calcium, Blood 8.4 mg/dL (8.5-10.1); Creatinine, Blood 0.57 mg/dL (0.40-1.00); Potassium, Blood 3.8 mmol/L (3.5-5.5)
--- NOTE | 2021-12-21 15:07 | NUR ---
Pt. is awake sitting in a chair and welcomes my visit. Pt. is generally pleasant, but is unsettled by setbacks in her recovery. Pt. displays evidence of patience and hope. Facilitate a life review and establish rapport. Pt. displays evidence of being encouraged. [place] with Pt. Pt. verbalizes gratitude for the spiritual care visit.
--- NOTE | 2021-12-21 16:58 | NUR ---
PT REPORTS ABD AND LOWER BACK PAIN WHICH IS ADEQUATELY CONTROLLED WITH PO MEDS. PT SITTING UP IN CHAIR MUCH OF SHIFT, AMBULATES USING WALKER WITH STANDBY ASSIST. EUSEBIA DRAIN #1 WITH ODOROUS YELLOW/MILKY DRAINAGE OF 10 ML THIS SHIFT. EUSEBIA #2 WITH BROWN LIQUID DRAINAGE, 10 ML THIS SHIFT. PT CAROLYNE CLEAR LIQUIDS WITHOUT NAUSEA. VOIDING CLEAR YELLOW URINE
[2021-12-22 06:20] LABS: Bun/Creatinine Ratio 25.1 (12.0-20.0); Calcium, Blood 8.1 mg/dL (8.5-10.1); Creatinine, Blood 0.52 mg/dL (0.40-1.00); Magnesium, Blood 2.1 mg/dL (1.6-2.4); Phosphorus, Blood 3.2 mg/dL (2.5-4.9); Potassium, Blood 3.6 mmol/L (3.5-5.5)
--- NOTE | 2021-12-22 14:15 | NUR ---
ASSISTED WITH SHOWER. NEW SPLIT DRESSINGS APPLIED TO EUSEBIA SITES X2
--- NOTE | 2021-12-22 17:16 | NUR ---
AMBULATING IN ROOM AND SHOWERED WITH MINIMAL ASSSIT. RIGHT EUSEBIA #1 WITH SCANT ODOROUS MILKY/YELLOW DRAINAGE. LEFT EUSEBIA 32 WITH VERY SCANT BROWN LIQUD DRAINAGE. PT CAROLYNE PO FULL LIQUIDS WITHOUT NAUSEA. PT REPORTS IS VERY TIRED AFTER ACTIVITY, PAIN CONTROLLED WITH PO MEDS
[2021-12-23 04:44] LABS: BASOPHILS ABSOLUTE AUTO 0.06 K/mm3 (0.00-0.23); BASOPHILS PERCENT AUTO 0 % (0-2); EOSINOPHILS ABSOLUTE AUTO 0.27 K/mm3 (0.00-0.68); EOSINOPHILS PERCENT AUTO 2 % (0-6); Hematocrit 25.2 % (33.0-51.0); Hemoglobin 8.1 g/dL (11.5-16.0); IMMATURE GRAN ABSOLUTE AUTO 0.07 K/mm3 (0.00-0.10); IMMATURE GRAN PERCENT AUTO 1 % (0-1); LYMPHOCYTES ABSOLUTE AUTO 1.79 K/mm3 (0.84-5.20); LYMPHOCYTES PERCENT AUTO 12 % (21-46); MONOCYTES ABSOLUTE AUTO 1.07 K/mm3 (0.16-1.47); MONOCYTES PERCENT AUTO 7 % (4-13); Mean Corpuscular HGB 25.4 pg (26.0-34.0); Mean Corpuscular HGB Conc 32.1 g/dL (31.5-36.5); Mean Corpuscular Volume 79 fL (80-100); Mean Platelet Volume 8.7 fL (9.1-12.4); NEUTROPHILS ABSOLUTE AUTO 12.16 K/mm3 (1.96-9.15); NEUTROPHILS PERCENT AUTO 79 % (41-73); Platelet Count 755 K/mm3 (150-400); RDW Coefficient Variation 15.2 % (11.7-14.2); RDW Standard Deviation 44.2 fL (35.1-46.3); Red Blood Cell Count 3.19 M/mm3 (3.80-5.20); White Blood Cell Count 15.42 K/mm3 (4.00-11.30)
--- NOTE | 2021-12-23 05:00 | NUR ---
SHIFT SUMMARY NO ACUTE CHANGES OVERNIGHT. POD10 LAP ABD WASH OUT AND DRAIN PLACEMENT. AMBULATES 1 SBA IN THE BATHROOM. PASSING FLATUS. SLEPT GOOD OVERNIGHT. PT REPORTS MODERATE PAIN ON HER BACK AND ABD. PAIN MANAGED WITH 5MG OXY AND 1G TYLENOL SCHEDULED. 2 EUSEBIA DRAIN - RLQ HAS 5MLS PURLENT AND LLQ HAS 10ML BROWN DRAINAGE WITH FOUL SMELL. RIGHT SIDE EUSEBIA SITE WAS DRAINING PURLENT WELL, GAUZE CHANGED TWICE T/O SHIFT. TOLERATING PO INTAKE DENIES NAUSEA AND VOMITING. VOIDING WITHOUT ISSUE. CPN INFUSING AT 60MLS/HR. IV ABX ADMINISTERED. VSS. DENIES CHEST PAIN. BT HYPOACTIVE. CALL LIGHT WITHIN REACH. WILL CONTINUE TO MONITOR AND WILL PROVIDE RERORT TO ONCOMING NURSE.
[2021-12-23 05:42] LABS: Albumin, Blood 1.5 g/dL (3.4-5.0); Albumin/Globulin Ratio 0.5 (0.8-1.8); Bilirubin, Total 0.4 mg/dL (0.1-1.0); Bun/Creatinine Ratio 22.4 (12.0-20.0); Calcium, Blood 7.8 mg/dL (8.5-10.1); Creatinine, Blood 0.45 mg/dL (0.40-1.00); Globulin, Blood 3.2 g/dL (2.2-4.0); Magnesium, Blood 2.2 mg/dL (1.6-2.4); Phosphorus, Blood 2.8 mg/dL (2.5-4.9); Potassium, Blood 3.8 mmol/L (3.5-5.5); Total Protein, Blood 4.7 g/dL (6.4-8.2)
--- NOTE | 2021-12-23 19:04 | NUR ---
SHIFT SUMMARY: PT HAS DONE WELL T/O SHIFT. LAP SITES X'S 4 C/D/I. EUSEBIA SITES WITH 10ML PURULENT DRAINAGE FROM R SIDE BROWN/PURULENT, 5ML FROM L PURULENT. SBA TO BATHOOM. PT TOLERATING FULL LIQUID T/O SHIFT WITH NO C/O N/V. UP TO CHAIR ALL THROUGH SHIFT. CPN RUNNING-PICC LINE TO HAI. PAIN MANAGED WITH PO PAIN MEDICATION. PLAN TO CONTINUE IV ABX AT THIS TIME.
--- NOTE | 2021-12-24 05:04 | NUR ---
SHIFT SUMMARY POD2 OPEN BONE BIOPSY WITH DR MENDEZ ON L FOOT. DRESSING CDI WITH ABD PAD, GAUZE AND OTTO WRAP. PT REPORTS MILD PAIN T/O SHIFT, MEDICATE WITH FLEXERIL AND OXY. IV DRESSING CHANGED. ADMINSTERED IV ABX VANCO. TOLERATING PO INTAKE DENIES NAUSEA AND VOMITING. WELDING MANAGER NOTIFIED ME THIS MORNING THAT THE PT PEED IN HIS PANTS, WELDING MANAGER ATTEMPT TO OFFER CHANGE CLOTHES BUT PT REFUSE AND GOT AGITATED. PT INDEPENDENT IN ROOM. NWB ON LLE. CONTACT ISOLATION FOR MRSA. CALL LIGHT WITHIN REACH. WILL CONITNUE TO MONITOR AND WILL PROVIDE REPORT TO ONCOMING NURSE.
[2021-12-24 05:55] LABS: BASOPHILS ABSOLUTE AUTO 0.09 K/mm3 (0.00-0.23); BASOPHILS PERCENT AUTO 1 % (0-2); EOSINOPHILS ABSOLUTE AUTO 0.34 K/mm3 (0.00-0.68); EOSINOPHILS PERCENT AUTO 3 % (0-6); Hematocrit 25.2 % (33.0-51.0); IMMATURE GRAN ABSOLUTE AUTO 0.08 K/mm3 (0.00-0.10); IMMATURE GRAN PERCENT AUTO 1 % (0-1); LYMPHOCYTES ABSOLUTE AUTO 1.49 K/mm3 (0.84-5.20); LYMPHOCYTES PERCENT AUTO 12 % (21-46); MONOCYTES ABSOLUTE AUTO 1.13 K/mm3 (0.16-1.47); MONOCYTES PERCENT AUTO 9 % (4-13); Mean Corpuscular HGB 25.3 pg (26.0-34.0); Mean Corpuscular HGB Conc 31.7 g/dL (31.5-36.5); Mean Corpuscular Volume 80 fL (80-100); Mean Platelet Volume 8.6 fL (9.1-12.4); NEUTROPHILS ABSOLUTE AUTO 9.85 K/mm3 (1.96-9.15); NEUTROPHILS PERCENT AUTO 76 % (41-73); Platelet Count 761 K/mm3 (150-400); RDW Coefficient Variation 15.4 % (11.7-14.2); Red Blood Cell Count 3.16 M/mm3 (3.80-5.20); White Blood Cell Count 12.98 K/mm3 (4.00-11.30)
--- NOTE | 2021-12-24 06:22 | NUR ---
SHIFT SUMMARY NO ACUTE CHANGES OVERNIGHT. PT AOX4. UP IN THE BATHROOM WITH 1 SBA. PT REPORTS ABD PAIN AND BACK PAIN. PAIN MANAGED WITH OXYCODONE, TYLENOL AND FLEXERIL. PT HAS 2 EUSEBIA DRAIN. (1) RLQ WITH PURLENT DRAINAGE WITH 10ML AND (2) LLQ WITH BROWN DRAINAGE HAS 2MLS. BOTH WITH FOUL STRONG SMELL. BT PRESENT. BT PRESENT. PASSING FLATUS, NO BM OVERNIGHT. SLEPT GOOD. CPN INFUSING ON PICC LINE ON HAI. ABX ADMINSTERED OVERNIGHT WELL. TOLERATING PO INTAKE. DENIES NAUSEA AND VOMITING. VSS. USE CALL LIGHT APPROPRIATELY. CALL LIGHT WITHIN REACH. WILL CONTINUE TO MONITOR AND WILL PROVIDE REPORT TO ONCOMING NURSE.
[2021-12-24 06:29] LABS: Albumin, Blood 1.5 g/dL (3.4-5.0); Albumin/Globulin Ratio 0.4 (0.8-1.8); Bilirubin, Total 0.2 mg/dL (0.1-1.0); Bun/Creatinine Ratio 21.4 (12.0-20.0); Calcium, Blood 7.9 mg/dL (8.5-10.1); Creatinine, Blood 0.47 mg/dL (0.40-1.00); Globulin, Blood 3.9 g/dL (2.2-4.0); Magnesium, Blood 2.3 mg/dL (1.6-2.4); Potassium, Blood 3.7 mmol/L (3.5-5.5); Total Protein, Blood 5.4 g/dL (6.4-8.2)
--- NOTE | 2021-12-25 04:36 | NUR ---
SHIFT SUMMARY NO ACUTE EVENTS THIS SHIFT. PT UP IN CHAIR AND TO THE BATHROOM ONE ASSIST WITH FWW. MEDICATED PER EMAR. TOLERATES REGULAR DIET THIS EVENING. PT HAVING BM AND VOIDING. REPORTS PASSING GAS. EUSEBIA DRAINS TO SUCTION R SIDE WITH SLIGHT PURULENT DRAINAGE. L SIDE DRAIN SCANT SEROSANGUINOUS. FLUIDS RUNNING KVO, VSS, PLAN TO FOLLOW UP WITH DR GARDUNO TODAY. CALLS APPROPRIATELY CALL LIGHT IN REACH. WILL REPORT TO ONCOMING RN.
[2021-12-25 05:29] LABS: BASOPHILS ABSOLUTE AUTO 0.11 K/mm3 (0.00-0.23); BASOPHILS PERCENT AUTO 1 % (0-2); EOSINOPHILS ABSOLUTE AUTO 0.34 K/mm3 (0.00-0.68); EOSINOPHILS PERCENT AUTO 3 % (0-6); Hematocrit 26.7 % (33.0-51.0); Hemoglobin 8.4 g/dL (11.5-16.0); IMMATURE GRAN ABSOLUTE AUTO 0.04 K/mm3 (0.00-0.10); IMMATURE GRAN PERCENT AUTO 0 % (0-1); LYMPHOCYTES ABSOLUTE AUTO 1.32 K/mm3 (0.84-5.20); LYMPHOCYTES PERCENT AUTO 13 % (21-46); MONOCYTES ABSOLUTE AUTO 0.95 K/mm3 (0.16-1.47); MONOCYTES PERCENT AUTO 10 % (4-13); Mean Corpuscular HGB 24.9 pg (26.0-34.0); Mean Corpuscular HGB Conc 31.5 g/dL (31.5-36.5); Mean Corpuscular Volume 79 fL (80-100); Mean Platelet Volume 8.6 fL (9.1-12.4); NEUTROPHILS ABSOLUTE AUTO 7.21 K/mm3 (1.96-9.15); NEUTROPHILS PERCENT AUTO 72 % (41-73); Platelet Count 820 K/mm3 (150-400); RDW Coefficient Variation 15.5 % (11.7-14.2); RDW Standard Deviation 44.7 fL (35.1-46.3); Red Blood Cell Count 3.37 M/mm3 (3.80-5.20); White Blood Cell Count 9.97 K/mm3 (4.00-11.30)
[2021-12-25 05:50] LABS: Albumin, Blood 1.7 g/dL (3.4-5.0); Albumin/Globulin Ratio 0.4 (0.8-1.8); Bilirubin, Total 0.5 mg/dL (0.1-1.0); Bun/Creatinine Ratio 15.9 (12.0-20.0); Calcium, Blood 8.3 mg/dL (8.5-10.1); Creatinine, Blood 0.5 mg/dL (0.40-1.00); Globulin, Blood 3.9 g/dL (2.2-4.0); Magnesium, Blood 2.2 mg/dL (1.6-2.4); Phosphorus, Blood 2.9 mg/dL (2.5-4.9); Total Protein, Blood 5.6 g/dL (6.4-8.2)
--- NOTE | 2021-12-25 18:44 | NUR ---
SHIFT SUMMARY PT IS TOLERATING APPROXIMATELY 50% OF HER ADA DIET, NO INCREASED NAUSEA OR PAIN AFTER EATING. PT REPORTED A SMALL STOOL THIS AFTERNOON. PAIN MANAGED WITH OXYCODONE. PT REPORTED INCREASED SOB THIS AFTERNOON WITH ACTIVITY AND AT REST. DR. CASH WAS NOTIFIED CHEST XRAY AND ECHO ORDERED, BUMEX TO BE GIVEN X1 TOMORROW MORNING. PT ENCOURAGED TO USE HER INCENTIVE SPIROMETER 10X PER HOUR, PT VERBALIZED SHE KNOWS HOW TO USE IT BUT HAS NOT BEEN. LUNG SOUNDS ARE DIM IN THE BASES. O2 SATURATIONS REMAIN GREATER THAN 95% ON RA. PLAN FOR PHYSICAL THERAPY TOMORROW. WILL MONITOR UNTIL REPOR TO JANAE RN.
[2021-12-26 04:46] LABS: BASOPHILS ABSOLUTE AUTO 0.09 K/mm3 (0.00-0.23); BASOPHILS PERCENT AUTO 1 % (0-2); EOSINOPHILS ABSOLUTE AUTO 0.27 K/mm3 (0.00-0.68); EOSINOPHILS PERCENT AUTO 3 % (0-6); Hematocrit 26.6 % (33.0-51.0); Hemoglobin 8.5 g/dL (11.5-16.0); IMMATURE GRAN ABSOLUTE AUTO 0.04 K/mm3 (0.00-0.10); IMMATURE GRAN PERCENT AUTO 1 % (0-1); LYMPHOCYTES ABSOLUTE AUTO 1.25 K/mm3 (0.84-5.20); LYMPHOCYTES PERCENT AUTO 15 % (21-46); MONOCYTES ABSOLUTE AUTO 0.91 K/mm3 (0.16-1.47); MONOCYTES PERCENT AUTO 11 % (4-13); Mean Corpuscular HGB 25.1 pg (26.0-34.0); Mean Corpuscular Volume 79 fL (80-100); Mean Platelet Volume 8.6 fL (9.1-12.4); NEUTROPHILS ABSOLUTE AUTO 5.67 K/mm3 (1.96-9.15); NEUTROPHILS PERCENT AUTO 69 % (41-73); Platelet Count 801 K/mm3 (150-400); RDW Coefficient Variation 15.4 % (11.7-14.2); RDW Standard Deviation 44.4 fL (35.1-46.3); Red Blood Cell Count 3.38 M/mm3 (3.80-5.20); White Blood Cell Count 8.23 K/mm3 (4.00-11.30)
[2021-12-26 05:00] LABS: Albumin, Blood 1.6 g/dL (3.4-5.0); Albumin/Globulin Ratio 0.4 (0.8-1.8); Bilirubin, Total 0.4 mg/dL (0.1-1.0); Bun/Creatinine Ratio 10.2 (12.0-20.0); Calcium, Blood 8.2 mg/dL (8.5-10.1); Creatinine, Blood 0.59 mg/dL (0.40-1.00); Magnesium, Blood 2.3 mg/dL (1.6-2.4); Phosphorus, Blood 2.9 mg/dL (2.5-4.9); Potassium, Blood 3.8 mmol/L (3.5-5.5); Total Protein, Blood 5.6 g/dL (6.4-8.2)
--- NOTE | 2021-12-26 05:07 | NUR ---
SHIFT SUMMARY NO ACUTE EVENTS THIS SHIFT, AOX4, PT TOLERATING PO INTAKE, HAVING BMS, VOIDING REGULARLY. DENIES N/V, N/T. EUSEB[place] DRAINS WITH SCANT PURULENT DRAINAGE. PT SOB ON EXERTION, RECOVERS QUICKLY, USED CPAP THIS SHIFT WHILE SLEEPING. REPORTS BETTER REST. O2 REMAINED ABOVE 94% ON RA. DR GARDUNO TO FOLLOW UP THIS AM FOR POSSIBLE DRAIN DC. MEDICATED PER EMAR FOR PAIN, VSS, CALL LIGHT IN REACH, WILL REPORT TO DAY RN.
[2021-12-26] MEDS ORDERED: ONDA4 PO (14:19)
[2021-12-26] MEDS ORDERED: PANT40 PO (14:21)
[2021-12-26] MEDS ORDERED: OXYC5 PO (14:23)
[2021-12-26] MEDS ORDERED: LACT PO (14:24)
--- NOTE | 2021-12-26 15:25 | NUR ---
ELEVATED BLOOD PRESSURE PT'S BLOOD PRESSURE ELEVATED WITH AFTERNOON VS. DR. CASH NOTIFIED OF ELEVATED BLOOD PRESSURE AT 1445. DR. CASH ROUNDED ON PT AND ORDERED HYDRALAZINE. OK TO GIVE HYDRALAZINE AND DC PT HOME, NO NEED FOR FOLLOW-UP BP CHECK AFTER HYDRALAZINE. WILL MONITOR UNTIL DISCHARGE HOME.
[2021-12-26] MEDS ORDERED: SULTRIDS PO (16:35)
[2021-12-26] MEDS ORDERED: METR500 PO (16:35)
--- NOTE | 2021-12-26 17:30 | NUR ---
DISCHARGE PT PROVIDED WITH WRITTEN AND VERBAL DISCHARGE INSTRUCTIONS; SHE REPORTED UNDERSTANDING INSTRUCTIONS. PT VERBALIZED FEELING READY TO GO HOME AND CONFIDENT WITH DISCHARGE PLAN. BP IMPROVED AFTER HYDRALAZINE WAS GIVEN, PT DID HAVE AND INCREASE IN HR, VS CHECKED AND SECOND TIME AND HR REMAINED <100; NO CHANGE IN PT STATUS OBSERVED. PT STILL SHORT OF BREATH WITH ACTIVITY, SHE STATES THAT SHORTNESS OF BREATH HAS IMPROVED SINCE YESTERDAY; DR CASH IS AWARE PT HAS BEEN SHORT OF BREATH WITH ACTIVITY. PT WAS ENCOURAGED TO FOLLOW UP WITH HER PCP WITHIN 72 HOURS TO 1 WEEK. EDUCATION GIVEN REGARDING MEDICATION CHANGES. PT ESCORTED OUT IN W/C, PT WAS ABLE TO GET INTO THE VEHICLE WITH VERBAL CUES ONLY.
== END 2021-12-26 17:00 | disposition home or self-care (01) | DRG 356 ==
LOC: ER 07:11 → SURS 11:22
PROVIDERS: Emergency Medicine; Internal Medicine; Surgery; ADMIT Family Medicine
PROC: 3E03329 Introduction of Other Anti-infective into Peripheral Vein, Percutaneous Approach (ICD-10-PCS; 2021-12-08)
PROC: 3E1M48Z Irrigation of Peritoneal Cavity using Irrigating Substance, Percutaneous Endoscopic Approach (ICD-10-PCS; 2021-12-13)
PROC: 0W9G40Z Drainage of Peritoneal Cavity with Drainage Device, Percutaneous Endoscopic Approach (ICD-10-PCS; principal; 2021-12-13 13:00)
DX: K57.20 Diverticulitis of large intestine with perforation and abscess without bleeding (principal); K65.1 Peritoneal abscess; K65.9 Peritonitis, unspecified; M48.56XA Collapsed vertebra, not elsewhere classified, lumbar region, initial encounter for fracture; Z68.41 Body mass index [BMI] 40.0-44.9, adult; Z90.49 Acquired absence of other specified parts of digestive tract; I10 Essential (primary) hypertension; Z20.822 Contact with and (suspected) exposure to COVID-19; F41.9 Anxiety disorder, unspecified; Z98.890 Other specified postprocedural states; Z79.899 Other long term (current) drug therapy; E66.9 Obesity, unspecified; M54.59 Other low back pain
CPT/HCPCS: 0241U; 36415; 36569; 71045; 74177; 80048; 80053; 80069; 82947; 83690; 83735; 84100; 84134; 84145; 84478; 85007; 85025; 85027; 86140; 87070; 87075; 93306; 94660; 94760; 94762; 96365-59; 96375; 96376; 97116; 97162; 97530; 99285-25; A9270; C1751; C9113; J0610; J1100; J1170; J1650; J1885; J1940; J2250; J2370; J2405; J2543; J2550; J2704; J2795; J3010; J3475; J3480; J7030; J7040; J7060; J7120; J7131; Q9967; U0004

== ENCOUNTER 2022-03-09 06:24 | Day surgery (SDC) | payer MEDICARE ==
[~2022-03-09] VITALS: Ht 162.6 cm; Wt 96.2 kg
[~2022-03-09 06:24] MED LIST changes: +Acetaminophen650 M1 PO; +BACTRIM DS TAB1 EAC6 PO; +Cyclobenzaprine5 MG PO; +ESCI20 PO; +LACT PO; +METR500 PO; +ONDA4 PO; +OXYC5 PO; +PANT40 PO; +PREG75 PO; +SULTRIDS PO; +THERA-D2000 UNIT PO
--- NOTE | 2022-03-09 07:00 | NUR ---
INTO SDS STATES WAS THROWING UP AFTER SECOND DOSE OF PILLS STATES PILLS WERE NOT SEEN IN VOMITT. BROUGHT INTO SDS IN AND ADMISSION STARTED TO UNIT
--- NOTE | 2022-03-09 08:28 | NUR ---
03/09/22 0828 Fred Perez History, Chart, Medications and Allergies reviewed before start of procedure.See Anesthesia record PER DR. AGUIRRE.
--- NOTE | 2022-03-09 09:41 | NUR ---
Discharge instructions reviewed with patient. Patient verbalizes understanding. Copy given to patient to take home. PT STATES SHE FEELS MUCH BETTER NOW. VSS. TOLERATED JUICE WELL. Discharged via wheelchair to private car for ride home.
== END 2022-03-09 09:40 | disposition home or self-care (01) ==
LOC: ORSCMMR 06:24 → ORD 08:00 → ORSCMMR 08:15 → ORD 08:15 → ORSCMMR 09:40
PROVIDERS: Surgery
PROC: 0DBL8ZX Excision of Transverse Colon, Via Natural or Artificial Opening Endoscopic, Diagnostic (ICD-10-PCS; principal; 2022-03-09 08:15)
DX: K57.92 Diverticulitis of intestine, part unspecified, without perforation or abscess without bleeding (principal); D12.3 Benign neoplasm of transverse colon; K64.8 Other hemorrhoids; K21.9 Gastro-esophageal reflux disease without esophagitis; G47.33 Obstructive sleep apnea (adult) (pediatric); F32.A Depression, unspecified; F41.9 Anxiety disorder, unspecified; I10 Essential (primary) hypertension; E66.9 Obesity, unspecified; Z68.38 Body mass index [BMI] 38.0-38.9, adult; Z79.899 Other long term (current) drug therapy
CPT/HCPCS: 88305; 93005; 93010; J1100; J2250; J2370; J2405; J2704; J7120

== ENCOUNTER → 2022-04-12 | Outpatient (CLI) | payer MEDICARE ==
[2022-04-25 19:06] LABS: HPV 16 Negative (Negative); HPV 18 Negative (Negative); HPV OTHER HR TYPES Negative (Negative)
== END ==
LOC: LAB 12:00 → LAB SHORT 12:00
PROVIDERS: Obstetrics & Gynecology
DX: Z01.419 Encounter for gynecological examination (general) (routine) without abnormal findings (principal)
CPT/HCPCS: 87624; G0123

== ENCOUNTER 2022-05-09 05:53 | Inpatient (IN) | payer MEDICARE ==
[~2022-05-09] VITALS: Ht 162.6 cm; Wt 93.9 kg
[~2022-05-09 05:53] MED LIST changes: +ACET500 PO; +PROBIOTIC1 EA13 PO
--- NOTE | 2022-05-09 18:26 | NUR ---
SHIFT SUMMARY PT A&OX4, VSS/RA, CAROLYNE CLD, DORANTES PATENT & DRAINING YELLOW URINE/STAT LOCK ON/OFF FLOOR, PAIN MANAGED WITH DIL 0.5 MG X1, LR @ 75 INFUSING, BEDREST/PT RESTING WELL/WAKES EASILY. S/P CHETNA SIG COLECTOMY RESECT, 4 LAP SITES, WOUND GLUE DRY/INTACT. WILL REPORT TO ONCOMING NOC RN.
[2022-05-10 05:22] LABS: BASOPHILS ABSOLUTE AUTO 0.02 K/mm3 (0.00-0.23); BASOPHILS PERCENT AUTO 0 % (0-2); EOSINOPHILS ABSOLUTE AUTO 0.01 K/mm3 (0.00-0.68); EOSINOPHILS PERCENT AUTO 0 % (0-6); Hematocrit 31.9 % (33.0-51.0); Hemoglobin 10.5 g/dL (11.5-16.0); IMMATURE GRAN ABSOLUTE AUTO 0.03 K/mm3 (0.00-0.10); IMMATURE GRAN PERCENT AUTO 0 % (0-1); LYMPHOCYTES ABSOLUTE AUTO 2.91 K/mm3 (0.84-5.20); LYMPHOCYTES PERCENT AUTO 32 % (21-46); MONOCYTES ABSOLUTE AUTO 0.91 K/mm3 (0.16-1.47); MONOCYTES PERCENT AUTO 10 % (4-13); Mean Corpuscular HGB 27.3 pg (26.0-34.0); Mean Corpuscular HGB Conc 32.9 g/dL (31.5-36.5); Mean Corpuscular Volume 83 fL (80-100); Mean Platelet Volume 9.1 fL (9.1-12.4); NEUTROPHILS ABSOLUTE AUTO 5.27 K/mm3 (1.96-9.15); NEUTROPHILS PERCENT AUTO 58 % (41-73); Platelet Count 364 K/mm3 (150-400); RDW Coefficient Variation 14.5 % (11.7-14.2); RDW Standard Deviation 43.5 fL (35.1-46.3); Red Blood Cell Count 3.85 M/mm3 (3.80-5.20); White Blood Cell Count 9.15 K/mm3 (4.00-11.30)
--- NOTE | 2022-05-10 05:41 | NUR ---
SHIFT SUMMARY: A&0X4. PAIN WELL MANAGED WITH PO TYLENOL AND OXYCODONE THIS SHIFT. X4 LAP SITES REMAIN CLOSED WTIH SKIN GLUE. FLUIDS CONTINUE TO RUN. PT TOLERATING VERY SMALL AMOUNTS OF PO FLUIDS, ENCOURAGED TO DRINK IF SHE CAN. BP WAS SLIGHTLY SOFT T/O THE SHIFT. PT DENIED CHEST PAIN OR SOB. RESTING AT THIS TIME WITH CALL LIGHT IN REACH. WILL GIVE REPORT TO DAY RN.
[2022-05-10 05:50] LABS: Bun/Creatinine Ratio 19.3 (12.0-20.0); Calcium, Blood 8.3 mg/dL (8.5-10.1); Creatinine, Blood 0.73 mg/dL (0.40-1.00); Magnesium, Blood 1.9 mg/dL (1.6-2.4); Potassium, Blood 4.1 mmol/L (3.5-5.5)
--- NOTE | 2022-05-10 11:04 | NUR ---
Pt. is awake and sitting in a recliner and welcomes my visit. Pt. is pleasant but a little unsettled that she has not heard from her doctor yet. Listen with empathy and a calming presence. Pt. displays evidence of trust and engagement, Rapport is established and Life review is facilitated. Prayed with Pt. Pt. verbalized gratitude for the spiritual care visit.
--- NOTE | 2022-05-10 15:54 | NUR ---
SHIFT SUMMARY PT A&OX4, VSS/RA, CAROLYNE PO, IV SL, VOIDING, AMB INDEPENDENTLY IN ROOM/TO BRP AND UP TO CHAIR, PAIN MANAGED WITH OXY 5MG AND TYLENOL. POD1, 4 LAP SITES W/WOUND GLUE DRY/INTACT, PT REP PASSING FLATUS. WILL REPORT TO ONCOMING NOC RN.
--- NOTE | 2022-05-11 05:25 | NUR ---
SHIFT SUMMARY: A&0X4. IND IN ROOM TO BR. PT REPORTED HAVING BM THIS SHIFT. TOLERATING PO FLUIDS AND FOOD. PAIN WELL MANAGED WITH OXYCODONE 5 MG. ABD BINDER REMAINS IN PLACE. PT IS VOIDING. PLANS TO DC TODAY. NO CHANGES NOTED THIS SHIFT. RESTING WITH CALL LIGHT IN REACH. WILL GIVE REPORT TO DAY TIME RN.
--- NOTE | 2022-05-11 12:47 | NUR ---
DC'D HOME, DC INSTRUCTIONS GIVEN, VERBALIZED UNDERSTANDING, IV DC'D, CATH INTACT.
== END 2022-05-11 12:38 | disposition home or self-care (01) | DRG 330 ==
LOC: SURS 05:53 → PRE IP 07:30 → SURS 14:55
PROVIDERS: ADMIT Surgery
PROC: 0DBP4ZZ Excision of Rectum, Percutaneous Endoscopic Approach (ICD-10-PCS; 2022-05-09)
PROC: 0DTN4ZZ Resection of Sigmoid Colon, Percutaneous Endoscopic Approach (ICD-10-PCS; principal; 2022-05-09 07:30)
DX: K57.32 Diverticulitis of large intestine without perforation or abscess without bleeding (principal); K91.71 Accidental puncture and laceration of a digestive system organ or structure during a digestive system procedure; E66.9 Obesity, unspecified; I10 Essential (primary) hypertension; F41.9 Anxiety disorder, unspecified; K43.9 Ventral hernia without obstruction or gangrene; Z68.35 Body mass index [BMI] 35.0-35.9, adult
CPT/HCPCS: 36415; 80048; 83735; 85025; 86850; 86900; 86901; 88307; A9270; J0694; J1100; J1170; J1650; J2250; J2370; J2405; J2704; J2795; J3010; J7120

== ENCOUNTER → 2022-06-19 | Outpatient (CLI) | payer MEDICARE | END | disposition home or self-care (01) | LOC: LAB SHORT 14:30 → PLD 14:30 | DX: D48.5 Neoplasm of uncertain behavior of skin (principal) | CPT/HCPCS: 88305 ==

== ENCOUNTER → 2022-09-17 | Outpatient (CLI) | payer MEDICARE ==
[2022-09-17 09:59] LABS: BASOPHILS ABSOLUTE AUTO 0.04 K/mm3 (0.00-0.23); BASOPHILS PERCENT AUTO 0 % (0-2); EOSINOPHILS ABSOLUTE AUTO 0.08 K/mm3 (0.00-0.68); EOSINOPHILS PERCENT AUTO 1 % (0-6); Hematocrit 38.1 % (33.0-51.0); IMMATURE GRAN ABSOLUTE AUTO 0.03 K/mm3 (0.00-0.10); IMMATURE GRAN PERCENT AUTO 0 % (0-1); LYMPHOCYTES ABSOLUTE AUTO 1.91 K/mm3 (0.84-5.20); LYMPHOCYTES PERCENT AUTO 19 % (21-46); MONOCYTES ABSOLUTE AUTO 0.62 K/mm3 (0.16-1.47); MONOCYTES PERCENT AUTO 6 % (4-13); Mean Corpuscular HGB 27.9 pg (26.0-34.0); Mean Corpuscular HGB Conc 34.1 g/dL (31.5-36.5); Mean Corpuscular Volume 82 fL (80-100); NEUTROPHILS ABSOLUTE AUTO 7.45 K/mm3 (1.96-9.15); NEUTROPHILS PERCENT AUTO 74 % (41-73); Platelet Count 385 K/mm3 (150-400); RDW Coefficient Variation 14.3 % (11.7-14.2); RDW Standard Deviation 41.6 fL (35.1-46.3); Red Blood Cell Count 4.66 M/mm3 (3.80-5.20); White Blood Cell Count 10.13 K/mm3 (4.00-11.30)
[2022-09-17 10:18] LABS: Albumin, Blood 3.2 g/dL (3.4-5.0); Albumin/Globulin Ratio 0.9 (0.8-1.8); Bilirubin, Total 3.7 mg/dL (0.1-1.0); Bun/Creatinine Ratio 15.8 (12.0-20.0); Calcium, Blood 9.2 mg/dL (8.5-10.1); Creatinine, Blood 0.76 mg/dL (0.40-1.00); Globulin, Blood 3.6 g/dL (2.2-4.0); Potassium, Blood 3.8 mmol/L (3.5-5.5); Total Protein, Blood 6.8 g/dL (6.4-8.2)
== END | disposition home or self-care (01) ==
LOC: LAB 09:54 → LAB SHORT 09:54
PROVIDERS: Family Medicine
DX: R10.9 Unspecified abdominal pain (principal)
CPT/HCPCS: 80053; 83690; 85025

== ENCOUNTER → 2023-01-25 | Outpatient (CLI) | payer MEDICARE ==
[2023-01-25 17:13] LABS: Microalb/Creat Ratio UR, Rand Unable to Calculate mg/g (0.000-30.000); Microalbumin, Random Urine <5.000 mg/L (0.000-20.000)
== END ==
LOC: LAB SHORT 12:15 → LAB 12:15
PROVIDERS: Family Medicine
DX: R73.03 Prediabetes (principal)
CPT/HCPCS: 82043; 82570

== ENCOUNTER 2023-05-22 17:32 | Emergency (ER) | payer OTHER ==
[~2023-05-22] VITALS: Ht 162.6 cm; Wt 99.8 kg
[2023-05-22 20:30] VITALS: BP 127/77
== END 2023-05-22 20:47 | disposition home or self-care (01) ==
LOC: ER 17:32
DX: S82.62XA Displaced fracture of lateral malleolus of left fibula, initial encounter for closed fracture (principal); M25.552 Pain in left hip; W18.30XA Fall on same level, unspecified, initial encounter; X50.1XXA Overexertion from prolonged static or awkward postures, initial encounter; Z79.899 Other long term (current) drug therapy
CPT/HCPCS: 29515; 73502; 73610; 82947; 93005; 93010; 96374-59; 99284-25; J1885

== ENCOUNTER 2023-05-25 08:39 | Emergency (ER) | payer OTHER ==
[~2023-05-25] VITALS: Ht 162.6 cm; Wt 99.8 kg
[2023-05-25] MEDS ORDERED: ALENDRONATE SOD35 MG PO (09:29)
[2023-05-25] MEDS ORDERED: Percocet 5-3251 EACH PO (13:04)
[2023-05-25] MEDS ORDERED: CYCL10 PO (13:04)
[2023-05-25] MEDS ORDERED: LIDO700A20 TOP (13:04)
[2023-05-25 14:13] VITALS: BP 158/88
== END 2023-05-25 14:52 | disposition home or self-care (01) ==
LOC: ER 08:39
DX: M80.08XA Age-related osteoporosis with current pathological fracture, vertebra(e), initial encounter for fracture (principal); I10 Essential (primary) hypertension; Z79.899 Other long term (current) drug therapy
CPT/HCPCS: 74176; 96372; 99284-25; A9270; J1885

== ENCOUNTER 2025-02-03 16:44 | Emergency (ER) | payer OTHER ==
[~2025-02-03] VITALS: Ht 162.6 cm; Wt 103.0 kg
[~2025-02-03 16:44] MED LIST changes: +ALENDRONATE SOD35 MG PO; +CYCL10 PO; +LIDO700A20 TOP; +Percocet 5-3251 EACH PO
[2025-02-03 16:47] VITALS: BP 174/102
[2025-02-03] MEDS ORDERED: Ketorolac Tromethamine 15mg Vial IV ONE (16:50)
[2025-02-03] MEDS ORDERED: Ketorolac Tromethamine 15mg Vial IM ONE (17:05)
[2025-02-03] MEDS ORDERED: Robaxin750 MG PO (17:32)
== END 2025-02-03 17:40 | disposition home or self-care (01) ==
LOC: ER 16:44
DX: M17.12 Unilateral primary osteoarthritis, left knee (principal); I10 Essential (primary) hypertension; Z79.83 Long term (current) use of bisphosphonates; Z79.899 Other long term (current) drug therapy
CPT/HCPCS: 73562-LT; 96372; 99283-25; A9270; J1885